=== PATIENT | female | born 1965 | race Caucasian/White ===

== ENCOUNTER 2016-12-03 04:08 | Emergency (ER) | payer OTHER ==
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
== END 2016-12-03 06:45 | disposition disaster alternative care site (69) ==
LOC: GACC 04:08
DX: S02.113A Unspecified occipital condyle fracture, initial encounter for closed fracture (principal); S12.600A Unspecified displaced fracture of seventh cervical vertebra, initial encounter for closed fracture; S22.019A Unspecified fracture of first thoracic vertebra, initial encounter for closed fracture; S22.039A Unspecified fracture of third thoracic vertebra, initial encounter for closed fracture; S22.049A Unspecified fracture of fourth thoracic vertebra, initial encounter for closed fracture; S22.059A Unspecified fracture of T5-T6 vertebra, initial encounter for closed fracture; S22.069A Unspecified fracture of T7-T8 vertebra, initial encounter for closed fracture; S22.079A Unspecified fracture of T9-T10 vertebra, initial encounter for closed fracture; S22.089A Unspecified fracture of T11-T12 vertebra, initial encounter for closed fracture; S27.0XXA Traumatic pneumothorax, initial encounter; S22.43XA Multiple fractures of ribs, bilateral, initial encounter for closed fracture; F32.9 Major depressive disorder, single episode, unspecified; F17.210 Nicotine dependence, cigarettes, uncomplicated; Z88.0 Allergy status to penicillin; Z88.2 Allergy status to sulfonamides; V89.2XXA Person injured in unspecified motor-vehicle accident, traffic, initial encounter; Y92.410 Unspecified street and highway as the place of occurrence of the external cause
CPT/HCPCS: J2270; J3010

== ENCOUNTER 2016-12-16 13:36 | Inpatient (IN) | payer OTHER, MEDICARE ==
[~2016-12-16] VITALS: Ht 160 cm; Wt 77.1 kg
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
--- NOTE | ~2016-12-16 | DS ---
PATIENT'S NAME: PABLO FOWLER [facility] AGE: 51 Y [address] ROOM: [place] [address] LOCATION: [facility] ADMIT DATE: 12/16/2016 Discharge Summary DISCHARGE DATE: FAMILY PHYSICIAN: PHYSICIAN, NO ATTENDING PHYSICIAN: Dany Singh ADDENDUM: I am trying to correct, if at all possible, the addendum that I dictated. I did dictate a discharge summary for Pablo Fowler initially and on 12/21/2016 so that she will be discharged on 12/22/2016. However, it was not possible to discharge her and we will discharge her on 12/23/2016 and I dictated an addendum on 12/22/2016 at 0830 hours. Document #[id number]. MD HERBIE FUNEZ/modl /[id number] d: 12/23/16 0419 t: 12/23/16 1559, DISCHARGE SUMMARY
--- NOTE | ~2016-12-16 | DS ---
PATIENT'S NAME: PABLO FOWLER [facility] AGE: 51 Y [address] ROOM: [address] [place] [address] LOCATION: [facility] ADMIT DATE: 12/16/2016 Discharge Summary DISCHARGE DATE: 12/22/2016 FAMILY PHYSICIAN: PHYSICIAN, NO ATTENDING PHYSICIAN: Gilberto Singh ADDENDUM: 1. This 51-year-old lady was supposed to be discharged one day ago; however, she was withheld on discharge to be discharged on 12/22 to home. At the present time, she is alert, oriented. Vitals are as follows: Blood pressure 129/78, temperature 98.1, pulse 99, respiration rate 18. She can ambulate 150 feet x 3 with occasional rest at times. 2. She is with TLSO. 3. There is no change in her medication and she is going to go on outpatient home health therapy with PT, OT on a regular basis. 4. I did explain to her that she has done well. She has improved nicely. She should follow with her family physician as soon as possible. No followup with me. Follow up with her surgeon as he sees fit. GILBERTO SINGH MD WMS/modl /[id number] d: 12/23/16 0404 t: 12/23/16 1601, DISCHARGE SUMMARY
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
[2016-12-16] MEDS ORDERED: CYCLOBENZAPRINE5 MG PO (15:38)
[2016-12-16] MEDS ORDERED: LOVENOX 3030 MG/0.3 SUB-Q (15:39)
[2016-12-16] MEDS ORDERED: LAMICTAL100 MG PO (15:40)
[2016-12-16] MEDS ORDERED: LIDOCAINE1 EACH TRANS (15:41)
[2016-12-16] MEDS ORDERED: DESYREL50 MG PO (15:42)
[2016-12-16] MEDS ORDERED: EFFEXOR XR150 MG PO (15:43)
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
[2016-12-16 18:14] LABS: BILIRUBIN URINE NEGATIVE (NEGATIVE); BLOOD URINE 50 /UL (NEGATIVE); COLOR URINE YELLOW (YELLOW); GLUCOSE URINE NEGATIVE (NEGATIVE); KETONE URINE NEGATIVE (NEGATIVE); LEUKOCYTES URINE 25 /UL (NEGATIVE); NITRITE URINE NEGATIVE (NEGATIVE); PROTEIN URINE NEGATIVE (NEGATIVE); TURBIDITY URINE 1+ (CLEAR); UROBILINOGEN URINE NORMAL (NORMAL)
[2016-12-16 18:43] LABS: AMORPHOUS URINE 2+ (NEGATIVE); BACTERIA URINE MODERATE (NEGATIVE)
[2016-12-17 05:34] LABS: HEMATOCRIT 31.8 % (33.0-46.0); HEMOGLOBIN 10.3 g/dL (10.0-15.0); MCH 29.6 pg (27.0-34.0); MCHC 32.4 gm/dL (32.0-36.5); MCV 91.4 fl (83.0-98.0); MPV 8.3 fl (9.4-12.4); PLATELET COUNT 565 K/uL (150-450); RBC 3.48 M/uL (3.50-5.50)
[2016-12-17 05:37] LABS: WBC 16.4 K/uL (4.0-11.0)
[2016-12-17 05:54] LABS: ALK PHOS 178 IU/L (33-138); ALT 26 IU/L (12-78); ANION GAP 11.2 (10.0-19.0); AST 11 IU/L (10-40); BLOOD UREA NITROGEN 15 mg/dL (6-24); CALCIUM 8.8 mg/dL (8.5-10.5); CHLORIDE 102 mMol/L (96-110); CO2 29 mMol/L (22-32); CREATININE 0.6 mg/dL (0.5-1.1); ESTIMATED GFR (MDRD EQUATION) > 60; POTASSIUM 4.2 mMol/L (3.7-5.1); SODIUM 138 mMol/L (135-145); TOTAL BILIRUBIN 0.3 mg/dL (0.0-1.5); TOTAL PROTEIN 6.8 g/dL (6.0-8.4)
[2016-12-17 06:23] LABS: ABSOLUTE NEUTROPHIL CT (ANC) 11.3 K/uL (1.8-7.8); LYMPHOCYTE # 3.1 K/uL (0.8-4.0); LYMPHOCYTE % 19 %; MONOCYTE # 1.1 K/uL (0.0-1.0); SEGMENTED NEUTROPHIL # 11.3 K/uL (1.8-7.8); SEGMENTED NEUTROPHIL % 69 %
--- NOTE | 2016-12-17 17:17 | NUR ---
Significant Event: Patient was up with OT and did bag bath. Did not know for sure how we would work the TLSO into the shower chair routine, need MD clarification. She did ambulate in the hallway with therapy and her daughter, tolerated well. She does have increased pain with getting in and out of bed. Flexeri given X2, last at 1540. Tylenol given X2, last to be given before shift ends. Nucynta given x3, last at 1430. Did clarify lidocaine patch order, she does have 3 patches total that she can have for 12 hours of each day. 2 anterior and 1 posterior. Started incentive spirometer, 750ml max. No BM but is passing gas. Daughter Karissa bedside, very helpful. VSS. Patient has been fiesty and needing some encouragement to do what she needs to get up and going. Follow up:
--- NOTE | 2016-12-18 04:18 | NUR ---
Significant Event: Pt A&Ox3; however needs LOTS of encouragement in regards to performing any cares or just having pt participate in therapies. VS stable. Constant c/o pain. In chart, pt has history of chronic lower back pain on top of acute pain. Has myrna tylenol, PRN flexeril TID and Nucynta q4. Constantly will ask for pain meds. Have tried to explain to pt that if you give all pain meds at once, you won't have any available to break between the availability. Pt unhappy with this and will constantly ask for meds before even an hour passes from previous meds given. Pt has been very needy last night and was on her call light nonstop. Try to make sure all items pt may need are within reaching distance so she doesn't have to sit up at all to reach objects. Pt has lidocaine patches placed in 3 spots; patches weren't placed until around 1530 yesterday. Follow up: Please clarify with MD regarding what to do with TSLO brace/[place] collar for showering. Possibly add NSAID to go with pain meds for additional pain control---Motrin 400-600mg q6?
--- NOTE | 2016-12-18 15:52 | NUR ---
Significant Event:PATIENT ALERT AND ORIENTED THIS SHIFT. VSS. TRANSFERS WITH 1 ASSIST, GAIT BELT AND WALKER. WEARS TLSO AND ASPEN COLLAR AT ALL TIMES. COMPLAINTS OF PAIN REGULARLY. TAKES NUCYNTA NEEDED FOR PAIN AND HAS SCEDULED TYLENOL. DAUGHTER AT BEDSIDE MOST OF THE DAY. TLSO ON UPSIDE DOWN THIS AM SO PUT ON CORRECTLY AND THEN TOP SIDE LABELED SO IT WOULD BE PUT ON RIGHT. TOOK SEVERAL WALKS IN THE HALLS TODAY WITH STAFF AND DAUGHTER. TOLERATED ACTIVITY FAIRLY WELL TODAY. NO OTHER COMPLAINTS. Follow up:
--- NOTE | 2016-12-19 04:30 | NUR ---
Significant Event: Patient is alert and oriented x 3, VSS. Up one assist with GB/Walker. Is to wear the TLSO brace when up and [place] collar at all times. Patient has issues with pain and has Nucynta and scheduled Tylenol for this. Nucynta 1- 50 mg tab was given x 4 last at 0302. Also has Xanax and Flexeril if needed. Daughters have been present and attentive to her needs. Patient is able to walk up and down the halls with assist. Patient has been using a Yankauer as needed for secreations. Has 3 Lidocaine patches she would like put on this morning before therapy. Follow up: Family has brought in her dary collar and extra pads for the TLSO so she can shower.
--- NOTE | 2016-12-19 12:32 | NUR ---
Significant Event: Patient alert and oriented. Up with 1 assist. Need 2 people to get the TLSO brace on. TLSO brace on when up. [place] collar at all times. Wears Lidocaine patches. Taking Nucenta for pain. Can be in hallways with family. Daughter at bedside. Follow up:
--- NOTE | 2016-12-20 05:02 | NUR ---
Alert and oriented. Cooperative with cares. UP with walker and one assist. TLSO brace to be on when up. [place] collar to remain at all times. Cooperative with cares tonight, although daughter tends to be blunt and impatient with staff at times. Takes Nucenta for pain q 4 hrs. Last given at 0150. Will give another dose at shift change so its working well when pt gets up for the day. Flexeril given at 0305, and is on rountine Tylenol.
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
--- NOTE | 2016-12-20 14:54 | NUR ---
Significant Event: Pt up in room with walker, TLSO on, cervical collar on. Pt does well getting in and out of bed on own. Amb in room well. Denies any dizziness. Nucynta 1 tab x 3 last at 1045,1409. Flexaril, tylenol at 1100. Pt restless and irritable at times, but has been cooperative with therapy schedule and nursing cares. Lidocaine patches to 3 sites this am. Good oral intake and voiding well. Follow up: safety, pain management, activity, continue TLSO on when up and cervical at all times.
[2016-12-20 16:46] LABS: BASOPHIL # 0.2 K/uL (0.0-0.2); BASOPHIL % 1.4 %; EOSINOPHIL # 0.4 K/uL (0.0-0.5); HEMATOCRIT 34.3 % (33.0-46.0); HEMOGLOBIN 10.7 g/dL (10.0-15.0); IMMATURE GRANULOCYTE # 0.5 K/uL (0.0-0.3); IMMATURE GRANULOCYTE % 3.5 %; LYMPHOCYTE # 3.9 K/uL (0.8-4.0); LYMPHOCYTE % 27.6 %; MCH 29.2 pg (27.0-34.0); MCHC 31.2 gm/dL (32.0-36.5); MCV 93.7 fl (83.0-98.0); MONOCYTE # 1.2 K/uL (0.0-1.0); MONOCYTE % 8.5 %; MPV 8.2 fl (9.4-12.4); NEUTROPHIL # (ANC) 7.9 K/uL (1.8-7.8); NRBC % 0 /100WBC (0-0.00); PLATELET COUNT 568 K/uL (150-450); RBC 3.66 M/uL (3.50-5.50); RDW-CV 14.6 % (11.9-14.6); WBC 14.1 K/uL (4.0-11.0)
[2016-12-20 17:00] LABS: BLOOD UREA NITROGEN 12 mg/dL (6-24); CALCIUM 8.8 mg/dL (8.5-10.5); CHLORIDE 106 mMol/L (96-110); CO2 29 mMol/L (22-32); CREATININE 0.7 mg/dL (0.5-1.1); ESTIMATED GFR (MDRD EQUATION) > 60; SODIUM 143 mMol/L (135-145)
--- NOTE | 2016-12-21 05:11 | NUR ---
Alert and oriented. Cooperative with cares. Daughter here to assist with cares until bedtime. TLSO removed and noted that gauze dsing was loose and slid up, adhering to pts left breast and roll up under armpit. Dsing was removed with old light pink serous drainage noted. Small chest tube puncture site is scabbed over with suture present. Covered with bandage. Pt takes Nucynta q 2 hrs and this seems to control her pain well. Last given at 0450 along with her scheduled Tylenol. Flexeril was given at hs.
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
--- NOTE | 2016-12-21 13:58 | NUR ---
Significant Event: Pt up in room with walker, SBA, TLSO on when up, cervical collar all times. Pt joselito. activity fair. O.T. showered pt this afternoon, and pain increased at this time. Nucynta x 3 last at 1338. Flexaril at 0753. Tylenol last at 1125. Lidocaine patches x 3 placed 2 on posterior rib area, 1 on lower anterior rt rib area. New order for nicotine patch and this was applied at 1125. bandaid to left breast intact, suture intact. Pt cooperative with cares. Slight nausea around noon, subsided with toast. Follow up: pain management, plan for discharge Fri. Continue with braces as ordered.
--- NOTE | 2016-12-22 02:54 | NUR ---
Pt is alert and oriented to person, place and time. Pt is pleasant and cooperative with cares. Pt has rated pain 6-7/10 this shift and received nucynta at 2006 and 2239. Pt also requested a flexeril. Pt had daughter assist with hs cares. pt took off her TLSO brace and complained that the Cervical collar was "rubbing" Her. The padding was ajusted and pt educated on the importance of needing to wear it. Pt stated understanding. pt's daughter asked about the need for the lovenox and was educated on prevention of DVT's. Pt is a stand by assist. She wants to be as independent as possible, she plans to discharge home on Monday.
--- NOTE | 2016-12-22 10:22 | NUR ---
Significant Event: Alert and oriented x 3. Up with 1A SBA. TLSO on when up. Cervical collar on at all times. Takes Nucynta and Flexaril for pain. Also takes scheduled tylenol. Lidocaine patches x 3. Nicotine patch to left upper arm. Bandaid on previous chest tube site to left breast. Suture intact. Daughter present this morning. Uses call light appropriately. Follow up:
[2016-12-22] MEDS ORDERED: TYLENOL EXTRA500 MG PO (11:03)
[2016-12-22] MEDS ORDERED: MIRALAX17 GM PO (11:05)
[2016-12-22] MEDS ORDERED: XANAX1 MG PO (11:07)
[2016-12-22] MEDS ORDERED: NUCYNTA50 MG PO (11:10)
[2016-12-22] MEDS ORDERED: NICODERM / HABIT7 MG TRANS (11:12)
[2016-12-22] MEDS ORDERED: "\\\"PREP SPRAY\\\"-TIN4 OZ" (11:12)
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
--- NOTE | 2016-12-23 04:38 | NUR ---
Significant Event: Patient alert and oriented x 3, VSS. Up one assist with GB/walker. Wears a TLSO brace when up and an [place] collar at all times. Issues with pain takes Nucynta on a regular basis last dose at 0425. Flexeril given at 0117. Likes Lidocaine patches on in the morning. Daughter rooms in. discharge today Follow up:
--- NOTE | 2016-12-23 10:43 | NUR ---
Significant Event: A/Ox3, makes needs known. Ambulates with SBA and walker with [place] neck brace and TLSO intact. Daughter present all night. VSS, LS clear throughout, abdomen soft and nontender, BS x4 quads. Rates frequent pain (takes prn nucynta, flexeril and tylenol, see emar), lidoderm patches x3 applied this AM to r) rib area and bilateral middle back areas per patient request. Advised to remove around 1930 tonight as that would be the 12 hour channing. To discharge home soon, discharge orders explained to patient. Follow up:
== END 2016-12-23 11:45 | disposition home health service (06) | DRG 561 ==
LOC: GIRP 13:44
PROVIDERS: ADMIT Physical Medicine & Rehabilitation
DX: S22.039D Unspecified fracture of third thoracic vertebra, subsequent encounter for fracture with routine healing (principal); R26.9 Unspecified abnormalities of gait and mobility; F32.9 Major depressive disorder, single episode, unspecified; S22.049D Unspecified fracture of fourth thoracic vertebra, subsequent encounter for fracture with routine healing; S22.059D Unspecified fracture of T5-T6 vertebra, subsequent encounter for fracture with routine healing; S22.069D Unspecified fracture of T7-T8 vertebra, subsequent encounter for fracture with routine healing; S22.079D Unspecified fracture of T9-T10 vertebra, subsequent encounter for fracture with routine healing; S22.089D Unspecified fracture of T11-T12 vertebra, subsequent encounter for fracture with routine healing; S22.43XD Multiple fractures of ribs, bilateral, subsequent encounter for fracture with routine healing; V49.9XXD Car occupant (driver) (passenger) injured in unspecified traffic accident, subsequent encounter; S12.600D Unspecified displaced fracture of seventh cervical vertebra, subsequent encounter for fracture with routine healing; S27.321D Contusion of lung, unilateral, subsequent encounter; F41.9 Anxiety disorder, unspecified; M54.9 Dorsalgia, unspecified; Z87.891 Personal history of nicotine dependence; K59.00 Constipation, unspecified; M50.321 Other cervical disc degeneration at C4-C5 level; M50.322 Other cervical disc degeneration at C5-C6 level; M50.323 Other cervical disc degeneration at C6-C7 level; F15.90 Other stimulant use, unspecified, uncomplicated; D72.829 Elevated white blood cell count, unspecified
CPT/HCPCS: J1650